=== PATIENT | female | born 2000 | race African-American/Black ===

== ENCOUNTER 2018-02-03 15:28 | Emergency (ER) | payer OTHER ==
[~2018-02-03] VITALS: Ht 172.7 cm; Wt 81.6 kg
--- NOTE | 2018-02-03 15:39 | ED GI/GU/ABDOMINAL COMPLAINT ---
History of Present Illness General Chief Complaint: General Adult Stated Complaint: "STOMACH PAIN THAT TRAVELS UP" PER PT Source: patient Exam Limitations: no limitations Vital Signs & Intake/Output Vital Signs & Intake/Output Vital Signs Date Time Temp Pulse Resp B/P B/P Pulse O2 O2 Flow FiO2 Mean Ox Delivery Rate 02/03 1706 98.5 74 18 120/65 99 Room Air 02/03 1552 98 Room Air 02/03 1539 97.8 76 18 119/79 98 Room Air ED Intake and Output 02/04 0000 02/03 1200 Intake Total Output Total Balance Patient 180 lb Weight Allergies Coded Allergies: amoxicillin (Intermediate, HIVES/RASH 02/03/18) Reconcile Medications Norethindrone-E.estradiol-Iron (War Fe 1-20 Tablet) 1 MG-20 MCG (21)/75 MG (7 ) TABLET 1 TAB PO DAILY CONTROL (Reported) Omeprazole Magnesium (Prilosec Otc) 20 MG TABLET.DR 1 TAB PO DAILY PRN GERD Triage Nurses Notes Reviewed? yes ? N Is pt currently ? No Duration: better Timing: single episode today Quality/Severity: mild Location: epigastric Activities at Onset: eating HPI: Patient is a 17-year-old female who presents emergency room stating that 2 days ago after eating [employer] she had approximately 2 hours later acute onset of epigastric pain with mild radiation to her back at the time patient states that pain is 1/10 nonradiating currently Denies any significant alcohol use or NSAID use denies any nausea vomiting change in symptoms upon eating and drinking denies any chest pain arm pain jaw pain vaginal bleeding or discharge. (Stone Sawant) Past History Travel History Traveled to [place] past 21 day No Medical History Any Pertinent Medical History? none Surgical History Surgical History: non-contributory Family History Hx Contributory? No (Stone Sawant) Review of Systems Review of Systems Constitutional: Reports: no symptoms. EENTM: Reports: no symptoms. Respiratory: Reports: no symptoms. Cardiovascular: Reports: no symptoms. GI: Reports: see HPI, abdominal pain. Genitourinary: Reports: no symptoms. Musculoskeletal: Reports: no symptoms. Skin: Reports: no symptoms. Neurological/Psychological: Reports: no symptoms. Hematologic/Endocrine: Reports: no symptoms. Immunologic/Allergic: Reports: no symptoms. All Other Systems: Reviewed and Negative (Stone Sawant) Physical Exam Physical Exam General Appearance: no apparent distress, alert, comfortable Head: atraumatic Eyes: Bilateral: normal appearance. Ears, Nose, Throat, Mouth: moist mucous membrane Neck: normal inspection Respiratory: no respiratory distress Cardiovascular: regular rate/rhythm Gastrointestinal: normal bowel sounds, mild epigastric pain no right upper quadrant pain no peritoneal signs no right lower quadrant pain Extremities: normal range of motion Skin: intact, normal color, warm/dry Core Measures ACS in differential dx? No Sepsis Present: No Sepsis Focused Exam Completed? No (Stone Sawant) Progress Differential Diagnosis: appendicitis, biliary colic, bowel obstruction, colon cancer, cholecystitis, diverticulitis, ectopic , endometritis, esophageal varices, gastritis, hepatitis, hernia, hemorrhoids, ischemic bowel, inflamm bowel dis, intrauterine , kidney stone, Whit-Marta tear, ovarian cyst, ovarian torsion, pancreatitis, PID/cervicitis, peptic ulcer, PUD/ GERD, perforated viscous, SBO, threatened AB, UTI/pyelo Plan of Care: Orders Procedure Date/time Status LIPASE 02/03 1539 Complete HUMAN BETA HCG SCREEN 02/03 1539 Complete COMPREHENSIVE METABOLIC PANEL 02/03 1539 Complete CBC WITHOUT DIFFERENTIAL 02/03 1539 Complete Laboratory Tests 02/03/18 1605: Anion Gap 12, Estimated GFR > 60, BUN/Creatinine Ratio 8.8, Glucose 88, Calcium 9.7, Total Bilirubin 0.6, AST 34, ALT 43, Alkaline Phosphatase 64, Total Protein 7.6, Albumin 4.4, Globulin 3.2, Albumin/Globulin Ratio 1.4, Lipase 48, Total Beta HCG NEGATIVE, CBC w Diff NO MAN DIFF REQ, RBC 4.48, MCV 91.0, MCH 29.9, MCHC 32.9 L, RDW 12.6, MPV 8.1, Gran % 53.3, Lymphocytes % 37.6, Monocytes % 5.6, Eosinophils % 2.1, Basophils % 1.4, Absolute Granulocytes 3.2, Absolute Lymphocytes 2.3, Absolute Monocytes 0.3, Absolute Eosinophils 0.1, Absolute Basophils 0.1 Patient currently is resting comfortably bedside no apparent distress afebrile no right lower quadrant pain patient has concerns of gastritis versus GERD No concerns of appendicitis After GI cocktail patient had improvement and complete resolution of symptoms blood work was resulted showing no acute findings. Patient will be treated for concerns of gastritis \\ GERD 1630 patient is requesting pizza Initial ED EKG: none (Stone Sawant) Departure Departure Disposition: HOME OR SELF CARE Condition: Stable Clinical Impression Primary Impression: Epigastric pain Additional Instructions: As discussed if symptoms worsen or if you develop any new concerning symptom return to emergency room, begin the prescription of Prilosec as directed. If no better on Monday follow-up with manager category Dr. Ruff or your primary care doctor prescriptions waiting at [facility] begin a 48-hour regimen of clear liquid bland diet to rest bowels Departure Forms: Customer Survey General Discharge Information Prescriptions: Current Visit Scripts Omeprazole Magnesium (Prilosec Otc) 1 TAB PO DAILY PRN GERD #30 TAB (Stone Sawant) PA/[employer] Co-Sign Statement Statement: ED Attending supervision documentation- [] I saw and evaluated the patient. I have also reviewed all the pertinent lab results and diagnostic results. I agree with the findings and the plan of care as documented in the PA's/[employer]'s documentation. [X] I have reviewed the ED Record and agree with the PA's/[employer]'s documentation. [] Additions or exceptions (if any) to the PAs/[employer]'s note and plan are summarized below: [] (Patsy BOB,Isel[place])
[2018-02-03 16:13] LABS: ABSOLUTE BASOPHIL COUNT 0.1 /CUMM (0.0-0.2); ABSOLUTE EOSINOPHIL COUNT 0.1 /CUMM (0.0-0.7); ABSOLUTE GRANULOCYTE CT 3.2 /CUMM (1.4-6.5); ABSOLUTE LYMPH COUNT 2.3 /CUMM (1.2-3.4); ABSOLUTE MONOCYTE COUNT 0.3 /CUMM (0.10-0.60); BASOPHIL % 1.4 % (0.0-2.0); EOSINOPHIL % 2.1 % (0-5); GRANULOCYTE % 53.3 % (42.2-75.2); HEMATOCRIT 40.7 % (37-47); MEAN CORPUSCULAR HGB 29.9 PG (27.0-31.0); MEAN CORPUSCULAR HGB CONC 32.9 G/DL (33.0-37.0); MEAN PLATELET VOLUME 8.1 FL (7.4-10.4); PLATELET COUNT 266 /CUMM (130-400); RBC DISTRIBUTION WIDTH 12.6 % (11.5-14.5); RED BLOOD CELL CT 4.48 /CUMM (4.20-5.40); WHITE BLOOD CELL COUNT 6.1 /CUMM (4.8-10.8)
[2018-02-03] MEDS ORDERED: TARINA FE 1-201 EACH PO (16:34)
[2018-02-03] MEDS ORDERED: PRILOSEC OTC20 M1 PO (17:02)
[2018-02-03 17:06] VITALS: BP 120/65
== END 2018-02-03 17:07 ==
LOC: ERH 15:28
PROVIDERS: Physician Assistant
DX: R10.13 Epigastric pain (principal)